=== PATIENT | female | born 1960 | race Caucasian/White ===

== ENCOUNTER 2017-02-02 03:20 | Emergency (ER) | payer OTHER ==
--- NOTE | 2017-02-02 03:24 | EDPHY ---
H & P HPI/ROS: HPI CHIEF COMPLAINT: Abdominal pain, abdominal cramps. 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 She presents emergency room with 2-3 days of nausea without vomiting and abdominal cramping that is diffuse across her abdomen. Not in 1 focal area. No fever. She does state that it comes in waves. She did have 1 episode of diarrhea on Tuesday but otherwise no further diarrhea. She has had decreased appetite. She reports she was out of town and prior to going out of town last week she was seen by her wood web weaving machine operator for her monthly checkup. At that time she had some muscle aches in viral type syndrome. She was started on amoxicillin. She took 2 doses of this them again abdominal cramping so stop this. She denies any chest pain shortness of breath. Sharp pain getting worse last night. It is rather diffuse. Across her abdomen crampy in nature. Currently 11/08. Denies urinary symptoms. Denies focal right lower quadrant kidney pain. She does report that the abdominal discomfort diffuse cramps gets worse after she eats and drinks. Past Medical History: Polycystic kidney disease. Past Surgical History: Renal transplant. Peritoneal dialysis. Social History: Denies daily use drugs alcohol tobacco products. Family History: Noncontributory ROS REVIEW OF SYSTEMS: A comprehensive 10 point review of systems is otherwise negative aside from elements mentioned in the history of present illness. Exam Constitutional appears well nontoxic triage nursing summary reviewed, vital signs reviewed, awake/alert. Eyes normal conjunctivae and sclera, EOMI, PERRLA. HENT normal inspection, atraumatic, moist mucus membranes, no epistaxis, neck supple/ no meningismus, no raccoon eyes. Respiratory clear to auscultation bilaterally, normal breath sounds, no respiratory distress, no wheezing. Cardiovascular rate normal, regular rhythm, no murmur, no edema, distal pulses normal. Gastrointestinal mild tenderness diffusely, no peritoneal signs,, no rebound, no guarding, normal bowel sounds, no distension, no pulsatile mass. Genitourinary no CVA tenderness. Musculoskeletal no midline vertebral tenderness, full range of motion, no calf swelling, no tenderness of extremities, no meningismus, good pulses, neurovascularly intact. Skin pink, warm, & dry, no rash, skin atraumatic. Neurologic awake, alert and oriented x 3, AAOx3, moves all 4 extremities equally, motor intact, sensory intact, CN II-XII intact, normal cerebellar, normal vision, normal speech. Psychiatric normal mood/affect. Heme/Lymph/Immune no lymphadenopathy. Differential diagnosis includes but is not limited to and in no particular order : Bowel obstruction, appendicitis, gallbladder disease, diverticulitis, colitis , enteritis, perforated viscus, gastritis, GERD, esophagitis, urinary tract infection, pyelonephritis, kidney stones Medical Decision Making: Plan for this patient IV establishment IV fluid bolus , Zofran nausea, Dilaudid for pain control. Check urinalysis. Check blood work. Abdominal labs. Creatinine. Most likely CT scan abdomen pelvis. Re-evaluation: 0539: Patient Is well-hydrated now. She has had 2 L normal saline here in the emergency room. He Dilaudid IV Zofran. She feels much better. She has not had any vomiting. Her abdomen remained soft. She had extensive workup for diffuse crampy abdominal pain which includes blood work urinalysis CT scan. She does not have any focal tenderness over her transplanted kidney. Her blood work does noted for leukopenia and thrombocytopenia. Creatinine is normal. Her CT scan of her abdomen pelvis does not show any acute inflammatory process however does show extensive cystic disease. Transplant kidney appears healthy. I went over this with the patient at great deal so I did offer admission today for observation IV fluids and pain control however she states she is feeling better would like to go home. She declined hospital admission. I did speak with her oncologist at this time Dr. Mcgregor. Discussed at length with Dr. Mcgregor. He would like haptoglobin LDH and CMV sent. Does not feel that the patient needs to stay in the emergency room hospital for this. He will follow her up with her wood web weaving machine operator today and tomorrow. Plan will be for repeat CBC for thrombocytopenia and leukopenia. Patient understands I did give her blood results. Again she understands return emergency room if she has worsening symptoms abdominal pain fever vomiting. Limited supply for an and [place]. Return precautions given she understands. Her are comfortable this plan. Source: Patient - Medical/Surgical History Hx Diabetes: No - Social History Smoking Status: Never smoked Constitutional: Initial Vital Signs Temperature (C) 36.3 C 02/02/17 03:21 Heart Rate 78 02/02/17 03:21 Respiratory Rate 18 02/02/17 03:21 Blood Pressure 106/74 02/02/17 03:21 O2 Sat (%) 97 02/02/17 03:21 O2 Delivery Mode Room Air O2 (L/minute) 2 Allergies/Adverse Reactions: No Known Allergies Allergy (Unverified 07/11/15 11:58) Home Medications: Medication Instructions Recorded Amoxicillin/Clavulanate Pot 02/02/17 Hydrocodone/APAP 5/325 [[place] 1 - 2 tab PO Q4H PRN #10 tab 02/02/17 5/325] Levothyroxine 02/02/17 Myfortic 02/02/17 Ondansetron HCl [Zofran] 4 mg PO Q4-6PRN PRN #10 tablet 02/02/17 Prednisone 02/02/17 Prograf 02/02/17 Medical Decision Making - Data Points Laboratory Results: Laboratory Results 02/02/17 03:45 02/02/17 03:45 02/02/17 02/02/17 02/02/17 03:50 03:45 03:45 WBC RBC Hgb Hct MCV MCH MCHC RDW Plt Count MPV Neut % (Auto) Lymph % (Auto) Aiken % (Auto) Eos % (Auto) Baso % (Auto) Nucleat RBC Rel Count Absolute Neuts (auto) Absolute Lymphs (auto) Absolute Monos (auto) Absolute Eos (auto) Absolute Basos (auto) Absolute Nucleated RBC Immature Gran % Seg Neutrophils % Band Neutrophils % Lymphocytes % Monocytes % Metamyelocytes % Immature Gran # Absolute Seg Neuts Absolute Band Neuts Absolute Lymphocytes Absolute Monocytes Absolute Metamyelocyte RBC/WBC/PLT Morphology Platelet Estimate PT INR APTT VBG Lactic Acid 1.7 mmol/L mmol/L (0.7-2.1) Sodium 138 mEq/L mEq/L (134-144) Potassium 3.7 mEq/L mEq/L (3.5-5.2) Chloride 100 mEq/L mEq/L (97-110) Carbon Dioxide 24 mEq/l mEq/l (22-31) Anion Gap 14 mEq/L mEq/L (8-16) BUN 13 mg/dL mg/dL (7-23) Creatinine 0.9 mg/dL mg/dL (0.6-1.0) Estimated GFR > 60 Glucose 92 mg/dL mg/dL (70-100) Calcium 8.8 mg/dL mg/dL (8.5-10.4) Total Bilirubin 0.9 mg/dL mg/dL (0.1-1.4) Conjugated Bilirubin 0.4 mg/dL mg/dL (0.0-0.5) Unconjugated Bilirubin 0.5 mg/dL mg/dL (0.0-1.1) AST 92 IU/L H IU/L (14-46) ALT 77 IU/L H IU/L (9-52) Alkaline Phosphatase 98 IU/L IU/L (38-126) Troponin I < 0.012 ng/mL ng/mL (0.000-0.034) Total Protein 7.1 g/dL g/dL (6.3-8.2) Albumin 4.2 g/dL g/dL (3.5-5.0) Lipase 178 IU/L IU/L (23-300) Urine Color YELLOW Urine Appearance CLEAR Urine pH 5.0 (5.0-7.5) Ur Specific [place] 1.020 (1.002-1.030) Urine Protein 1+ H (NEGATIVE) Urine Ketones NEGATIVE (NEGATIVE) Urine Blood NEGATIVE (NEGATIVE) Urine Nitrate NEGATIVE (NEGATIVE) Urine Bilirubin NEGATIVE (NEGATIVE) Urine Urobilinogen NEGATIVE EU EU (0.2-1.0) Ur Leukocyte Esterase NEGATIVE (NEGATIVE) Urine RBC 1-3 /hpf /hpf (0-3) Urine WBC 3-5 /hpf H /hpf (0-3) Ur Epithelial Cells TRACE /lpf /lpf (NONE-1+) Urine Mucus 1+ /lpf /lpf (NONE-1+) Urine Glucose NEGATIVE (NEGATIVE) 02/02/17 02/02/17 03:45 03:45 WBC 3.37 10^3/uL L 10^3/uL (3.80-9.50) RBC 5.59 10^6/uL H 10^6/uL (4.18-5.33) Hgb 15.8 g/dL g/dL (12.6-16.3) Hct 48.0 % H % (38.0-47.0) MCV 85.9 fL fL (81.5-99.8) MCH 28.3 pg pg (27.9-34.1) MCHC 32.9 g/dL g/dL (32.4-36.7) RDW 15.6 % H % (11.5-15.2) Plt Count 90 10^3/uL L 10^3/uL (150-400) MPV 12.5 fL H fL (8.7-11.7) Neut % (Auto) Not Reported Lymph % (Auto) Not Reported Aiken % (Auto) Not Reported Eos % (Auto) Not Reported Baso % (Auto) Not Reported Nucleat RBC Rel Count 0.0 % % (0.0-0.2) Absolute Neuts (auto) Not Reported Absolute Lymphs (auto) Not Reported Absolute Monos (auto) Not Reported Absolute Eos (auto) Not Reported Absolute Basos (auto) Not Reported Absolute Nucleated RBC 0.00 10^3/uL 10^3/uL (0-0.01) Immature Gran % Not Reported Seg Neutrophils % 62 % % Band Neutrophils % 10 % % Lymphocytes % 15 % % Monocytes % 11 % % Metamyelocytes % 2 % % Immature Gran # Not Reported Absolute Seg Neuts 2.09 10^/uL 10^/uL (1.70-6.50) Absolute Band Neuts 0.34 10^3/uL 10^3/uL (0.00-0.70) Absolute Lymphocytes 0.51 10^3/uL L 10^3/uL (1.00-3.00) Absolute Monocytes 0.37 10^3/uL 10^3/uL (0.30-0.80) Absolute Metamyelocyte 0.07 10^3/mL H 10^3/mL (0.00-0.00) RBC/WBC/PLT Morphology NORMAL (NORMAL) Platelet Estimate DECREASED L (ADEQ) PT 12.5 SEC SEC (12.0-15.0) INR 0.94 (0.83-1.16) APTT 28.8 SEC SEC (23.0-38.0) VBG Lactic Acid Sodium Potassium Chloride Carbon Dioxide Anion Gap BUN Creatinine Estimated GFR Glucose Calcium Total Bilirubin Conjugated Bilirubin Unconjugated Bilirubin AST ALT Alkaline Phosphatase Troponin I Total Protein Albumin Lipase Urine Color Urine Appearance Urine pH Ur Specific [place] Urine Protein Urine Ketones Urine Blood Urine Nitrate Urine Bilirubin Urine Urobilinogen Ur Leukocyte Esterase Urine RBC Urine WBC Ur Epithelial Cells Urine Mucus Urine Glucose Medications Given: Discontinued Medications Hydromorphone HCl (Dilaudid) 0.5 mg IVP EDNOW ONE Stop: 02/02/17 03:32 Last Admin: 02/02/17 03:49 Dose: 0.5 mg Sodium Chloride (Ns) 1,000 mls @ 0 mls/hr IV EDNOW ONE; Wide Open PRN Reason: Protocol Stop: 02/02/17 03:32 Last Admin: 02/02/17 03:48 Dose: 1,000 mls Sodium Chloride (Ns) 1,000 mls @ 0 mls/hr IV ONCE ONE PRN Reason: Wide Open Stop: 02/02/17 04:40 Last Admin: 02/02/17 04:45 Dose: 1,000 mls Ondansetron HCl (Zofran) 4 mg IVP EDNOW ONE Stop: 02/02/17 03:32 Last Admin: 02/02/17 03:48 Dose: 4 mg Departure - Departure Disposition: Home, Routine, Self-Care Clinical Impression: Abdominal pain Qualifiers: Abdominal location: generalized Qualified Code(s): R10.84 - Generalized abdominal pain Condition: Good Instructions: Acute Abdominal Pain (ED) Additional Instructions: 1. Return to the emergency room if you have worsening abdominal pain fever vomiting. 2. Pulp with her wood web weaving machine operator tomorrow. Please call there today for follow-up appointment. Referrals: Katie Bourgeois MD [Primary Care Provider] - As per Instructions Chuy Mcgregor MD [Medical Doctor] - As per Instructions Prescriptions: Hydrocodone/APAP 5/325 [[place] 5/325] 1 - 2 tab PO Q4H PRN #10 tab PRN Reason: Pain, Moderate Ondansetron HCl [Zofran] 4 mg PO Q4-6PRN PRN #10 tablet PRN Reason: Nausea/Vomiting, Use 1st
[2017-02-02 03:25] VITALS: RESP 18
[2017-02-02] MEDS ORDERED: HYDROmorphONE/DILAUDID 1 MG/ML INJ IVP ONE (03:31)
[2017-02-02] MEDS ORDERED: NS 1,000 ML IV ONE ×2 (03:31→04:39)
[2017-02-02] MEDS ORDERED: ONDANSETRON 4 MG/2 ML VIAL IVP ONE (03:31)
[2017-02-02 04:19] LABS: COLOR YELLOW; LEUKOCYTE ESTERASE,URINE NEGATIVE (NEGATIVE); NITRITE,URINE NEGATIVE (NEGATIVE)
[2017-02-02 04:20] LABS: ALANINE AMINOTRANSFERASE 77 IU/L (9-52); ALBUMIN 4.2 g/dL (3.5-5.0); ALKALINE PHOSPHATASE 98 IU/L (38-126); ANION GAP 14 mEq/L (8-16); ASPARTATE AMINOTRANSFERASE 92 IU/L (14-46); BILIRUBIN,TOTAL 0.9 mg/dL (0.1-1.4); BILIRUBIN-CONJUGATED 0.4 mg/dL (0.0-0.5); BILIRUBIN-UNCONJUGATED 0.5 mg/dL (0.0-1.1); CALCIUM 8.8 mg/dL (8.5-10.4); CARBON DIOXIDE 24 mEq/l (22-31); CHLORIDE 100 mEq/L (97-110); CREATININE 0.9 mg/dL (0.6-1.0); GLOMERULAR FILTRATION RATE > 60; GLUCOSE 92 mg/dL (70-100); POTASSIUM 3.7 mEq/L (3.5-5.2); SODIUM 138 mEq/L (134-144); TOTAL PROTEIN 7.1 g/dL (6.3-8.2)
[2017-02-02 04:23] LABS: INR 0.94 (0.83-1.16); PROTIME(PATIENT) 12.5 SEC (12.0-15.0)
[2017-02-02 04:24] LABS: APTT 28.8 SEC (23.0-38.0)
[2017-02-02 04:27] LABS: MUCUS 1+ /lpf (NONE-1+)
[2017-02-02 04:31] LABS: ADD DIFF? YES; ADD MORPH? NO; FRAGMENT RBC FLAG 0 (0-99); HEMOGLOBIN 15.8 g/dL (12.6-16.3); LEFT SHIFT FLG 60 (0-99); LIPEMIA HEMOLYSIS FLAG 80 (0-99); MEAN CELL HEMOGLOBIN 28.3 pg (27.9-34.1); MEAN CELL HEMOGLOBIN CONCENTR. 32.9 g/dL (32.4-36.7); MEAN CELL VOLUME 85.9 fL (81.5-99.8); MEAN PLATELET VOLUME 12.5 fL (8.7-11.7); PLATELET CLUMPS FLAG 0 (0-99); PLATELET COUNT 90 10^3/uL (150-400); RED BLOOD CELL COUNT 5.59 10^6/uL (4.18-5.33); RED CELL DISTRIBUTION WIDTH 15.6 % (11.5-15.2); TROPONIN I < 0.012 ng/mL (0.000-0.034)
[2017-02-02 04:34] LABS: ADD SCAN? NO; ATYPICAL LYMPHOCYTE FLAG 140 (0-99)
[2017-02-02 05:15] LABS: PLATELET ESTIMATE DECREASED (ADEQ)
[2017-02-02 06:07] VITALS: BP 108/77; PULSE 67; TEMP 98.2; O2SAT 94
[2017-02-02 06:08] LABS: LACTATE DEHYDROGENASE 753 IU/L (313-618)
[2017-02-03 16:17] LABS: HAPTOGLOBIN SERUM 142 mg/dL (30 - 200)
[2017-02-03 19:45] LABS: CMV DNA DETECTION AND QUANTIFI 290000 IU/mL (Undetected)
== END 2017-02-02 06:07 | disposition home or self-care (01) ==
DX: R10.84 Generalized abdominal pain (principal); E86.9 Volume depletion, unspecified
CPT/HCPCS: 74176; 96361; 96374; 96375; 99285; J1170; J2405; 83010-90; 86644-90; 86645-90; 87497-90